=== PATIENT | female | born 1990 | race Caucasian/White ===

== ENCOUNTER 2017-03-14 20:02 | Emergency (ER) | payer OTHER ==
[2017-03-14 20:14] VITALS: BP 118/76; PULSE 115; TEMP 99; BMI 30.1
[2017-03-14 21:28] LABS: URINE APPEARANCE CLEAR; URINE BILIRUBIN NEGATIVE (NEGATIVE); URINE BLOOD 2+ (NEGATIVE); URINE COLOR STRAW; URINE GLUCOSE (UA) NEGATIVE (NEGATIVE); URINE KETONE NEGATIVE (NEGATIVE); URINE NITRITE NEGATIVE (NEGATIVE); URINE PROTEIN NEGATIVE (NEGATIVE); URINE UROBILINOGEN NEGATIVE mg/dL (0.2-1.0)
--- NOTE | 2017-03-14 21:30 | PDOC ---
History of Present Illness - General Chief Complaint: Back Pain Stated Complaint: BACK AND BLADDER PAIN Time Seen by Provider: 03/14/17 20:54 History Source: Patient Exam Limitations: No Limitations - History of Present Illness Initial Comments: 03/14/17 21:28 26 yr female c/o low back pain and urinary urgency and burning. no vaginal discharge. LMP 2 weeks ago no fever or chills . 03/18/17 15:47 Timing/Duration: 24 hours Severity: mild Past History - Past Medical History Allergies/Adverse Reactions: Allergies Allergy/AdvReac Type Severity Reaction Status Date / Time No Known Allergies Allergy Verified 08/28/13 01:40 Home Medications: Ambulatory Orders Acetazolamide [Diamox Sequels -] 1,000 mg PO BID 03/14/17 Cephalexin [Keflex] 500 mg PO TID #21 capsule 03/14/17 Phenazopyridine HCl [Pyridium] 200 mg PO TID PRN #6 tablet 03/14/17 Sulfamethoxazole/Trimethoprim [Bactrim Ds -] 1 tab PO BID #6 tablet 03/18/17 Other medical history: intra cranial htn - Suicide/Smoking/Psychosocial Hx Smoking History: Never smoked Have you smoked in the past 12 months: No Information on smoking cessation initiated: No Hx Alcohol Use: No Drug/Substance Use Hx: No *Physical Exam - Vital Signs Last Vital Signs Temp Pulse Resp BP Pulse Ox 99 F 115 H 19 118/76 98 03/14/17 20:12 03/14/17 20:12 03/14/17 20:12 03/14/17 20:12 03/14/17 20:12 - Physical Exam General Appearance: Yes: Nourished, Appropriately Dressed HEENT: positive: EOMI, VAISHNAVI Neck: positive: Supple. negative: Tender Respiratory/Chest: positive: Lungs Clear, Normal Breath Sounds Cardiovascular: positive: Regular Rhythm, Regular Rate Gastrointestinal/Abdominal: positive: Normal Bowel Sounds, Soft Musculoskeletal: positive: Normal Inspection Extremity: positive: Normal Capillary Refill, Normal Inspection, Normal Range of Motion Integumentary: positive: Normal Color, Dry, Warm Neurologic: positive: Fully Oriented, Alert, Normal Mood/Affect, Normal Response , Motor Strength 5/5 ED Treatment Course - ADDITIONAL ORDERS Additional order review: Laboratory Results 03/14/17 21:15 Urine HCG, Qual Negative Medical Decision Making - Medical Decision Making 03/14/17 21:29 cc: urinary urgency and burning with low back pain neg fever neg chills neg nvd will r/o UTI r/o 03/14/17 21:56 urine with positive blood *DC/Admit/Observation/Transfer Diagnosis at time of Disposition: Urinary tract infection Qualifiers: Urinary tract infection type: acute cystitis Hematuria presence: with hematuria Qualified Code(s): N30.01 - Acute cystitis with hematuria - Discharge Dispostion Disposition: HOME Condition at time of disposition: Good - Prescriptions Prescriptions: Cephalexin [Keflex] 500 mg PO TID #21 capsule Phenazopyridine HCl [Pyridium] 200 mg PO TID PRN #6 tablet PRN Reason: pain - Referrals Referrals: Eber Rondon MD., MD [Staff Physician] - - Patient Instructions Additional Instructions: drink pleanty of water to stay hydrated take the medications as directed for urine infection follow with your doctor for follow up next week return if any worsening symptoms
[2017-03-14 21:32] LABS: URINE BACTERIA RARE /hpf (NONE SEEN); URINE MUCUS RARE; URINE RBC 2 /hpf (0-3); URINE WBC 23 /hpf (3-5)
[2017-03-14 22:55] LABS: URINE LEUK ESTERASE 1+ (NEGATIVE)
--- NOTE | 2017-03-18 15:55 | PDOC ---
Patient Follow-up (Call Back) - Post ED Follow - Up Chief Complaint: Urinary Problem Condition at time of discharge: Good Disposition at time of original discharge: HOME Reason for Call Back: Abnwl. Microbiology (resitant to Keflex will place on Bactrim) Signs/Symptoms Improved: Yes - Disposition Rx Needed: Yes (bactrim DS bid for 2 days ) Additional Instructions/Notes: spoke with the patient who is feeling better however I will send 3 days of Bactrim to cover resistant bacteria.
== END 2017-03-14 22:56 | disposition home or self-care (01) ==
LOC: JERFT 20:02
DX: N30.01 Acute cystitis with hematuria (principal)
CPT/HCPCS: 36415; 81003; 81015; 84703; 87086; 87186; 87491; 87591; 99281-25

== ENCOUNTER 2018-03-30 20:14 | Emergency (ER) | payer OTHER ==
[2018-03-30 20:20] VITALS: BMI 31.6
--- NOTE | 2018-03-30 21:21 | PDOC ---
History of Present Illness - General Chief Complaint: Chest Pain Stated Complaint: CHEST PAIN,RT LEG PAIN Time Seen by Provider: 03/30/18 21:21 History Source: Patient - History of Present Illness Initial Comments: 03/30/18 23:49 28 year old female with intermittent left side chest pain x 1 week. denies SOB, plueritic chest pain, recent URI/ cough, fever/ chills, heavy lifting, recent travel. denies headache, dizziness, diaphoresis PMHX: hydrocephalus with stent placement. NO fmhx of cardiac disease / sudden Past History - Past Medical History Allergies/Adverse Reactions: Allergies Allergy/AdvReac Type Severity Reaction Status Date / Time No Known Allergies Allergy Verified 03/30/18 20:18 Home Medications: Ambulatory Orders Aspirin [ASA -] 81 mg PO DAILY 03/30/18 COPD: No - Immunization History Immunization Up to Date: No - Suicide/Smoking/Psychosocial Hx Smoking History: Never smoked Have you smoked in the past 12 months: No Hx Alcohol Use: No Drug/Substance Use Hx: No Substance Use Type: None *Physical Exam - Vital Signs Last Vital Signs Temp Pulse Resp BP Pulse Ox 98.4 F 79 18 117/53 L 99 03/30/18 20:18 03/30/18 20:18 03/30/18 20:18 03/30/18 20:18 03/30/18 20:18 - Physical Exam General Appearance: Yes: Appropriately Dressed Respiratory/Chest: positive: Lungs Clear, Normal Breath Sounds. negative: Chest Tender Cardiovascular: positive: Regular Rhythm, Regular Rate Gastrointestinal/Abdominal: positive: Normal Bowel Sounds Heart Score/ECG Review - ECG Intrepretation Rhythm: Regular Rhythm Comment:: 03/30/18 23:51 NSR with sinus arrythmia ED Treatment Course - LABORATORY CBC & Chemistry Diagram: 03/30/18 22:27 03/30/18 22:27 *DC/Admit/Observation/Transfer Diagnosis at time of Disposition: Chest pain Qualifiers: Chest pain type: unspecified Qualified Code(s): R07.9 - Chest pain, unspecified - Discharge Dispostion Disposition: HOME - Referrals - Patient Instructions Printed Discharge Instructions: DI for Atypical Chest Pain Additional Instructions: please follow up with your doctor return to the ER if symptoms worsen. Additional Instructions: * Please call your personal physician to report your Emergency Department visit and to report your progress, if any. * If there is no improvement in symptoms in 2 days call your physician. * Return to the Emergency Department for any worsening symptoms. - Post Discharge Activity
[2018-03-30] MEDS ORDERED: ACETAMINOPHEN 500 MG TABLET (FP) PO STA (22:11)
[2018-03-30] MEDS ORDERED: ACETAMINOPHEN 325 MG TABLET (FP) ONE (22:32)
[2018-03-30 22:50] LABS: BASO % 0.4 % (0-2.0); EOS % 2.7 % (0-4.5); HEMATOCRIT 35.9 % (32.4-45.2); HEMOGLOBIN 11.4 GM/dL (10.7-15.3); MCH 27.9 pg (25.7-33.7); MCHC 31.7 g/dl (32.0-36.0); MEAN PLT VOLUME 9.4 fl (7.5-11.1); MONO % 10.3 % (3.8-10.2); NEUT % 48.6 % (42.8-82.8); PLATELET COUNT 302 K/MM3 (134-434); RBC 4.08 M/mm3 (3.60-5.2); RDW 14.2 % (11.6-15.6); WHITE BLOOD COUNT 8.2 K/mm3 (4.0-10.0)
[2018-03-30 23:21] LABS: ALBUMIN 3.4 g/dl (3.4-5.0); ALK PHOS 74 U/L (45-117); ANION GAP 5 MMOL/L (8-16); BILIRUBIN,TOTAL 0.2 mg/dL (0.2-1); BLOOD UREA NITROGEN 13 mg/dL (7-18); CALCIUM 8.9 mg/dL (8.5-10.1); CHLORIDE 107 mmol/L (98-107); CO2 29 mmol/L (21-32); CREATININE 0.8 mg/dL (0.55-1.3); GLUCOSE,RANDOM 92 mg/dL (74-106); POTASSIUM 3.6 mmol/L (3.5-5.1); SGOT/AST 8 U/L (15-37); SGPT/ALT 17 U/L (13-61); SODIUM 141 mmol/L (136-145); TOT PROT 7.1 g/dl (6.4-8.2)
[2018-03-31 00:04] VITALS: BP 120/78; PULSE 89; TEMP 98.5
--- NOTE | 2018-04-01 15:08 | EKG ---
Test Reason : Blood Pressure : / mmHG Vent. Rate : 087 BPM Atrial Rate : 087 BPM P-R Int : 124 ms QRS Dur : 080 ms QT Int : 378 ms P-R-T Axes : 041 -07 003 degrees QTc Int : 454 ms SINUS RHYTHM WITH MARKED SINUS ARRHYTHMIA MODERATE VOLTAGE CRITERIA FOR LVH, MAY BE NORMAL VARIANT BORDERLINE ECG NO PREVIOUS ECGS AVAILABLE Confirmed by SHANNAN YING MD ([id number]) on 04/01/2018 3:08:24 PM Referred By: Confirmed By:SHANNAN YING MD
== END 2018-03-31 00:02 | disposition home or self-care (01) ==
LOC: JER 20:14
DX: R07.9 Chest pain, unspecified (principal); G91.9 Hydrocephalus, unspecified; Z98.2 Presence of cerebrospinal fluid drainage device
CPT/HCPCS: 36415; 80053; 84484; 85025; 93005; 93010; 99283-25

== ENCOUNTER 2018-10-18 19:55 | Emergency (ER) | payer OTHER ==
[2018-10-18 20:08] VITALS: BP 105/77; PULSE 82; TEMP 97.8; BMI 30.1
--- NOTE | 2018-10-18 20:10 | PDOC ---
Rapid Medical Evaluation Chief Complaint: Sore Throat Time Seen by Provider: 10/18/18 20:07 Medical Evaluation: Allergies Allergy/AdvReac Type Severity Reaction Status Date / Time No Known Allergies Allergy Verified 10/18/18 20:05 10/18/18 20:07 I have performed a brief in-person evaluation of this patient. The patient presents with a chief complaint of: 1 month h/o throat pain. Denies fever, chills. has not seen anybody about symptoms Pertinent physical exam findings: A&O x 3. afebrile I have ordered the following: rapid strep The patient will proceed to the ED for further evaluation. Discharge Disposition - Diagnosis Pharyngitis - Discharge Dispostion Condition at time of disposition: Stable - Referrals - Patient Instructions - Post Discharge Activity
--- NOTE | 2018-10-18 21:16 | PDOC ---
History of Present Illness - General Chief Complaint: Sore Throat Stated Complaint: CONSTANT THROAT PAIN Time Seen by Provider: 10/18/18 20:07 - History of Present Illness Initial Comments: 10/18/18 21:14 28-year-old female with a past medical history significant for pseudotumor cerebra, she has a stent presents for evaluation of sore throat without systemic symptoms times one month Past History - Past Medical History Allergies/Adverse Reactions: Allergies Allergy/AdvReac Type Severity Reaction Status Date / Time No Known Allergies Allergy Verified 10/18/18 20:05 Home Medications: Ambulatory Orders Aspirin [ASA -] 81 mg PO DAILY 03/30/18 COPD: No Other medical history: psuedo tumors - Immunization History Immunization Up to Date: No - Suicide/Smoking/Psychosocial Hx Smoking History: Never smoked Have you smoked in the past 12 months: No Hx Alcohol Use: No Drug/Substance Use Hx: No Substance Use Type: None Review of Systems - Review of Systems Constitutional: No: Fever HEENTM: Yes: Throat Pain *Physical Exam - Vital Signs Last Vital Signs Temp Pulse Resp BP Pulse Ox 97.8 F 82 18 105/77 100 10/18/18 20:06 10/18/18 20:06 10/18/18 20:06 10/18/18 20:06 10/18/18 20:06 - Physical Exam Comments: 10/18/18 21:14 HEAD: NC/AT EYES: Conjuntiva clear Ears: Canals and TM's normal NOSE: No d/c THROAT: Moist mucous membrances, oral pharanx clear, uvula midline NECK: Supple without adenopathy CARDIAC: S1 S2 LUNGS: CTA Full and Equal breath sounds ABDOMEN: Soft NT ND MS: Full ROM in all joints without edema NEUROLOGIC: No gross sensory or motor deficits, NVID SKIN: Normal color and temperature no lesions or rashes Medical Decision Making - Medical Decision Making 10/18/18 21:14 Warm saltwater gargles and Tylenol for viral pharyngitis, I've explained the avoidance of anti-inflammatories because of the stent she has placed she is in agreement I will also have her follow-up with ENT for further evaluation and treatment options. *DC/Admit/Observation/Transfer Diagnosis at time of Disposition: Pharyngitis, Viral pharyngitis - Discharge Dispostion Disposition: HOME Condition at time of disposition: Stable Decision to Admit order: No - Referrals Referrals: David York MD [Primary Care Provider] - Paddy Neville MD [Staff Physician] - - Patient Instructions Printed Discharge Instructions: Viral Pharyngitis, DI for Viral Pharyngitis Additional Instructions: Return to the emergency room for worsening symptoms. Warm salt water gargles 5- 6 times a day will help his your throat pain. Tylenol for pain as directed. Follow-up with ear nose and throat doctor in 1-2 days without fail for further evaluation and treatment options. - Post Discharge Activity
== END 2018-10-18 21:41 | disposition home or self-care (01) ==
LOC: JERFT 19:55
DX: J02.9 Acute pharyngitis, unspecified (principal); B97.89 Other viral agents as the cause of diseases classified elsewhere; Z98.2 Presence of cerebrospinal fluid drainage device
CPT/HCPCS: 87070; 87880; 99281-25